=== PATIENT | female | born 1980 | race African-American/Black ===

== ENCOUNTER → 2016-10-21 | Outpatient (CLI) | payer OTHER ==
[~2016-10-21] VITALS: Ht 175.3 cm; Wt 88.5 kg
[~2016-10-21] MED LIST: ALEVE220 MG PO; FLEXERIL PO; LIORESAL 10 MG10 MG PO; MEDROLDOSEPACK PO; NORCO 5-325 TA1 EACH PO; TRAMADOL 50 MG50 MG PO; ZANAFLEX4 MG PO
--- NOTE | ~2016-10-21 | HPC ---
[facility] [address] [place] [address] PAIN MANAGEMENT CONSULTATION Name: RAKAN MALDONADO Room #: REG [facility] Burak.#: [id number] Admission: 10/21/16 Attend Phys: Bull Herrera DO Discharge: Date of : 84 Report #: [id number] THIS REPORT FOR: //name// CC: Tere Herrera DATE OF SERVICE: 10/21/2016 REFERRING PHYSICIAN: ROLLY Chapin. CHIEF COMPLAINT: Left upper buttock, posterolateral thigh pain, and left SI joint dysfunction. 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 She indicates today pain level of 7/10. States her pain is sharp and aching, exacerbated with coughing, laughing, sneezing, sitting any length of time. She has been followed by [facility] for the left SI dysfunction for some time. We have trialled medication management and left SI joint injections, all of which have provided some improvement in symptoms. The patient at last visit was advised to follow up with doctors of osteopathy, who manipulate SI joints. Unfortunately, the patient did not make any appointments, and has not seen this physician group. She returns today stating pain of level of 7/10. She is requesting possible changes in medication therapy, interventional treatments to address ongoing pain. She does come today with a letter from Dr. lEdon Ramirez, requesting a diagnostic SI joint injection as she is considering moving forward with surgical fusion. The patient does report today a change in her medical history. She is now 7 weeks . ALLERGIES: SULFA and ACETAMINOPHEN. CURRENT MEDICATIONS: Baclofen and naproxen. SOCIAL HISTORY: The patient denies tobacco. She quit recently. Denies IV or illicit drug use. Denies any chronic alcohol abuse. She is unaccompanied today. PHYSICAL EXAMINATION: VITAL SIGNS: Blood pressure 144/77, pulse 91, respiratory rate 14 and unlabored. The patient is 98% on room air. Height 5 feet 9 inches tall, weight 195.2 pounds, BMI calculated 28.8. GENERAL: Well developed, well nourished, and well hydrated. A 36-year-old female, appearing her stated age. Pain is rated at 7/10, left sacroiliac joint. HEENT: Normocephalic and atraumatic. Pupils are equal, round, and reactive to light. Sclerae are nonicteric, without injection[place] [address] PAIN MANAGEMENT CONSULTATION Name: RAKAN MALDONADO Room #: REG [facility]#: [id number] Admission: 10/21/16 Attend Phys: Bull Herrera DO Discharge: Date of : 84 Report #: [id number] EXTREMITIES: Show no clubbing, no cyanosis, no edema. MUSCULOSKELETAL: The patient remains tender to palpation over the left SI joint. Deep palpation in the area causes intensification of pain. The patient is displaying antalgic gait favoring left lower extremity over right. The patient is unable to sit on the left when compared to the right due to pain over the SI joint. ASSESSMENT: 1. Left sacroiliac joint pain and dysfunction. 2. . 3. Chronic intractable pain. PLAN: 1. The patient has returned today in followup visit, indicating that she is now 7 weeks . Unfortunately, this precludes us from providing any medication management in her case. We do not feel comfortable providing medications with at best category B, but most of our medications are actually for category C. These will not be provided to the patient. We have advised the patient to discontinue the baclofen at this time. She will need to check with her WANIGAN CLERK in regards to continuation of the anti-inflammatory medication in the form of naproxen. I strongly recommend the patient to come off the baclofen immediately, as there is a potential for teratogenic effects with this medication. She will need to discuss further with her WANIGAN CLERK next week, whether or not any type of medications can be taken during , though we recommend utilizing no analgesic medications at all as the categories are concerning. 2. The patient does come today with a letter from Dr. Eldon Ramirez, requesting a left sacroiliac joint injection for diagnostic purposes. I have advised the patient at this time, we would not be able to provide this injection as it would require a minimum of 5 seconds of x-ray. This is in an area of very close to where the fetus is developing. This is an absolute contraindication of x-ray imaging, and we will not be able to perform this at this time. Once the patient has completed her and has given , we could certainly look towards this injection for diagnostic purposes. 2. The patient does indicate that Dr. Ramirez has written for a CT examination of the pelvis. I strongly recommend that the patient cancel this evaluation. Again, x-ray exposure to the fetus is an absolute contraindication. The patient should contact Dr. Ramirez's office in regards to her , so they can make appropriate cancellations of the CT examination. 3. The patient will see her WANIGAN CLERK starting next week. She could talk to her WANIGAN CLERK about any medications, they may be willing to provide her for analgesic benefit. Again, I do not feel comfortable providing any of the medications, we typically do for pain control as they all have too higher risk to the fetus. 4. The patient and I did discuss the possibility that she may be still a candidate to trial osteopathic manipulation of the SI joint. This could be done in the 1st and 2nd trimesters, typically discontinued in the third trimester as [facility] [address] [place] [address] PAIN MANAGEMENT CONSULTATION Name: JENNIFERRAKAN CHURCH Room #: REG [facility] Dunn#: [id number] Admission: 10/21/16 Attend Phys: Bull Herrera DO Discharge: Date of : 84 Report #: [id number] there is a potential to induce labor. The patient was given the names of 2 physicians, who do sacroiliac joint manipulations. She can contact them at her earliest convenience. 5. I am pleased to hear about the patient's . Unfortunately, this does preclude us from providing any treatment for the SI joint at this time, except for more conservative therapy as indicated above with manipulation of the SI joint. I will be returning her care to her primary care team and will see her back once the has been completed. <ELECTRONICALLY SIGNED> By: Bull Herrera DO 11/03/16 [id number] Bull Herrera DO /nt
[2016-10-21 08:49] VITALS: BP 144/77
== END | disposition home or self-care (01) ==
LOC: PAIN 07:07
DX: M53.3 Sacrococcygeal disorders, not elsewhere classified (principal); G89.29 Other chronic pain; Z34.83 Encounter for supervision of other normal pregnancy, third trimester; Z87.891 Personal history of nicotine dependence